=== PATIENT | male | born 1975 | race Two or more races ===

== ENCOUNTER 2017-03-27 18:24 | Emergency (ER) | payer SELFPAY ==
[~2017-03-27] VITALS: Ht 182.9 cm; Wt 90.7 kg
[2017-03-27] MEDS ORDERED: PREDNISONE20 MG ORAL (19:09)
[2017-03-27] MEDS ORDERED: AQUAPHOR99 GM TP (19:09)
[2017-03-27] MEDS ORDERED: IBUPROFEN600 MG ORAL (19:09)
[2017-03-27 19:15] VITALS: BP 143/88
[2017-03-27 19:17] VITALS: BP 143/88
--- NOTE | 2017-03-27 22:17 | Emergency Room Report ---
History of Present Illness General Chief Complaint: Skin Rash/Abscess Source: Patient Present Illness HPI The patient is a 41-year-old male presenting for redness of his skin. He states that he was out in the sun for the whole day yesterday without any protection. He is noticed bright red skin of his shoulders. Pain is a 7/10 burning sensation and he has also developed itching. He states that he is dull there at home which did not help. Pain does not radiate from the burned areas. He denies any other symptoms including fever, chills Allergies: Coded Allergies: No Known Allergies (Unverified , 03/27/17) Patient History Past Medical History: see triage record Pertinent Family History: none Reviewed Nursing Documentation: PMH: Agreed, PSxH: Agreed Nursing Documentation-PMH Past Medical History: No Stated History Review of Systems All Other Systems: negative except mentioned in HPI Physical Exam Vital Signs Date Time Temp Pulse Resp B/P Pulse Ox O2 Delivery O2 Flow Rate FiO2 03/27/17 18:45 97.5 59 18 143/88 98 Room Air Sp02 EP Interpretation: reviewed, normal General Appearance: no apparent distress, alert, GCS 15, non-toxic Head: normocephalic, atraumatic Eyes: bilateral eye PERRL, bilateral eye normal inspection ENT: hearing grossly normal, normal pharynx, no angioedema, normal voice Neck: full range of motion, supple/symm/no masses Musculoskeletal: back normal, gait/station normal, normal range of motion Neurologic: alert, oriented x3, responsive, motor strength/tone normal, sensory intact, speech normal Psychiatric: judgement/insight normal, memory normal, mood/affect normal, no suicidal/homicidal ideation Skin: rash - bright red shoulders, upper back, and scalp. Tender. No vesicles or papules. Lymphatic: no adenopathy Medical Decision Making PA Attestation Dr. Juarez is my supervising physician. Patient management was discussed with my supervising physician Diagnostic Impression: Primary Impression: First degree burn ER Course The patient is a 41-year-old male presenting for sunburn Differential diagnosis considered not limited to: First degree burn, second- degree burn, cellulitis, contact dermatitis Physical exam is consistent with a first degree sunburn The patient is given a prescription for prednisone and Aquaphor. He will follow up with primary doctor. ER precautions given Last Vital Signs Date Time Temp Pulse Resp B/P Pulse Ox O2 Delivery O2 Flow Rate FiO2 03/27/17 19:17 97.5 69 18 143/88 98 Room Air Status: improved Disposition: HOME, SELF-CARE Condition: Improved Scripts SinWhite (AQUAPHOR) 99 Gm Oint...g. 1 APPLIC TP TID, #100 GM Prov: [email or web address] 03/27/17 Prednisone* (PREDNISONE*) 20 Mg Tablet 40 MG ORAL DAILY, #10 TAB Prov: [email or web address] 03/27/17 Ibuprofen* (MOTRIN*) 600 Mg Tablet 600 MG ORAL Q8H Y for For Pain, #30 TAB 0 Refills Prov: VIK NICK 03/27/17 Referrals: NOT CHOSEN IPA/MD,REFERRING (PCP) Patient Instructions: Rash, Burn Care Additional Instructions: I discussed my findings with the patient. All questions and concerns have been answered. Treatment and medication compliance have been addressed. I advised the patient that they need to follow up with PMD in 3-5 days. Return to ED if symptoms worsen, new symptoms arise, or if needed for any reason. Patient verbalized understanding of discharge instructions. VIK NICK Mar 27, 2017 22:17
== END 2017-03-27 19:17 | disposition home or self-care (01) ==
LOC: EMR 19:06
DX: T21.13XA Burn of first degree of upper back, initial encounter (principal); T22.152A Burn of first degree of left shoulder, initial encounter; T22.151A Burn of first degree of right shoulder, initial encounter; T20.15XA Burn of first degree of scalp [any part], initial encounter; L55.9 Sunburn, unspecified; X58.XXXA Exposure to other specified factors, initial encounter; Y93.9 Activity, unspecified; Y92.9 Unspecified place or not applicable
CPT/HCPCS: 99284